=== PATIENT | male | born 1985 | race Caucasian/White ===

== ENCOUNTER 2018-02-12 15:11 | Emergency (ER) | payer OTHER ==
[~2018-02-12] VITALS: Ht 170.2 cm; Wt 95.5 kg
[2018-02-12 16:56] VITALS: BP 152/103
== END 2018-02-12 17:26 | disposition home or self-care (01) ==
LOC: EMS 15:13
DX: F10.239 Alcohol dependence with withdrawal, unspecified (principal); Y90.9 Presence of alcohol in blood, level not specified